=== PATIENT | female | born 1965 | race Two or more races ===

== ENCOUNTER 2018-11-01 15:47 | Emergency (ER) | payer OTHER ==
[~2018-11-01] VITALS: Ht 165.1 cm; Wt 72.6 kg
[2018-11-01 16:24] VITALS: BP 116/68
[2018-11-01] MEDS ORDERED: LACTULOSE 20Gm/30ML SOLN PO ONE (16:45)
== END 2018-11-01 17:23 | disposition home or self-care (01) ==
LOC: ER 15:52
DX: K64.4 Residual hemorrhoidal skin tags (principal); K59.00 Constipation, unspecified
CPT/HCPCS: 74018